=== PATIENT | male | born 1975 | race Caucasian/White ===

== ENCOUNTER 2019-10-17 01:53 | Emergency (ER) | payer OTHER ==
[~2019-10-17] VITALS: Ht 170.2 cm; Wt 65.0 kg
[2019-10-17] MEDS ORDERED: ACETAMINOPHEN WITH CODEINE 300/30MG TABLET PO ONE (04:45)
[2019-10-17 05:28] VITALS: BP 120/78
== END 2019-10-17 05:30 | disposition home or self-care (01) ==
LOC: ER 01:53
DX: M25.561 Pain in right knee (principal); M79.671 Pain in right foot; V89.9XXA Person injured in unspecified vehicle accident, initial encounter; Y93.89 Activity, other specified; Y92.89 Other specified places as the place of occurrence of the external cause; Y99.8 Other external cause status; J45.909 Unspecified asthma, uncomplicated
CPT/HCPCS: 73562; 73630; 99283

== ENCOUNTER 2019-11-27 02:12 | Emergency (ER) | payer SELFPAY ==
[~2019-11-27] VITALS: Ht 175.3 cm; Wt 64.0 kg
[2019-11-27] MEDS ORDERED: METHYLPREDNISOLONE SOD SUCC 125 MG/2 ML VIAL IV STA (03:27)
[2019-11-27] MEDS ORDERED: IPRATROPIUM BROMIDE (0.02%) 0.5MG/2.5ML NEB HHN STA (03:27)
[2019-11-27] MEDS ORDERED: ALBUTEROL (0.083%) 2.5MG/3ML NEB HHN STA (03:27)
[2019-11-27 05:09] VITALS: BP 121/78
== END 2019-11-27 05:13 | disposition home or self-care (01) ==
LOC: ER 02:12
DX: J44.1 Chronic obstructive pulmonary disease with (acute) exacerbation (principal); F17.200 Nicotine dependence, unspecified, uncomplicated; Z91.030 Bee allergy status; Z98.890 Other specified postprocedural states
CPT/HCPCS: 71045; 94644; 96374; 99285; 99406; J2930; Z7610